=== PATIENT | female | born 1955 | race Caucasian/White ===

== ENCOUNTER → 2017-10-30 | Outpatient (CLI) | payer OTHER | LOC: BMCIMAGING 10:59 | PROVIDERS: ATTEND Internal Medicine | DX: Z13.820 Encounter for screening for osteoporosis (principal); M81.0 Age-related osteoporosis without current pathological fracture; Z78.0 Asymptomatic menopausal state ==

== ENCOUNTER → 2017-11-01 | Outpatient (CLI) | payer OTHER | LOC: BMCIMAGING 12:31 | PROVIDERS: ATTEND Internal Medicine | DX: Z12.31 Encounter for screening mammogram for malignant neoplasm of breast (principal) ==

== ENCOUNTER → 2017-12-11 | Outpatient (CLI) | payer OTHER | LOC: BMCIMAGING 13:25 | PROVIDERS: ATTEND Orthopaedic Surgery | DX: M16.11 Unilateral primary osteoarthritis, right hip (principal) ==

== ENCOUNTER → 2017-12-13 | Outpatient (CLI) | payer OTHER | LOC: BMCIMAGING 13:18 | PROVIDERS: ATTEND Orthopaedic Surgery | PROC: 3E0U3KZ Introduction of Other Diagnostic Substance into Joints, Percutaneous Approach (ICD-10-PCS; principal; 2017-12-13) | DX: M16.11 Unilateral primary osteoarthritis, right hip (principal) ==

== ENCOUNTER 2018-02-07 07:26 | Inpatient (IN) | payer OTHER ==
--- NOTE | 2018-01-18 11:20 | GHP ---
DATE OF ADMISSION: 02/07/2018 She will be an a.m. admission for surgery on Wednesday, February 07, 2018. PROBLEM: Right hip severe degenerative arthritis. HISTORY OF PRESENT ILLNESS: The patient is a 62-year-old woman admitted for a right total knee arthr oplasty. She has had severe pain in her right hip since November 19, 2016. She has been taking gabape ntin 3 times a day and diclofenac to control her pain. She is using a walker full-time. She had a left total hip arthroplasty on the [facility] in April of 2016. She had a right total knee arthroplasty by Dr. Pratik Iverson in [facility] in May of 2017. MEDICAL HISTORY: She is treated for hypothyroidism. She is also treated for prediabetes and elevate d cholesterol. No history of heart disease or stents, DVT, hepatitis, MRSA staph infection, sleep ap jt or bleeding disorders. In 2005, she had osteomyelitis in her right great toe. This was methicillin sensitive Staph aureus. She received vancomycin for 6 months. CURRENT MEDICATIONS: Gabapentin 300 mg three times daily, levothyroxine 50 mcg per day, metformin 50 0 mg twice daily. Oracea 40 mg daily. Pravachol 40 mg per day. Acyclovir p.r.n. DRUG ALLERGIES: Tramadol causes her lips to itch. She has been tested and has a known nickel allerg y. She has a Hernandez and Nephew total knee. She also has a latex allergy. SOCIAL HISTORY: The patient is self-employed senior graphic designer. She does not smoke cigarettes and occa sionally drinks alcohol. She is . FAMILY HISTORY: Positive for arthritis, asthma and cancer. PHYSICAL EXAMINATION: GENERAL: She is a healthy-appearing woman. Height 5 feet 1 inch. Weight 178 pounds. BMI: 33.6. EYES: Conjunctivae and sclerae are clear. Pupils are round and reactive. ALBERTO TH: Good oral hygiene. No loose teeth. CHEST: Clear. HEART: Regular rhythm. No murmurs. EXTRE MITIES: Pertinent findings are limited to her right hip. She has full hip extension and 90 degrees of flexion. External rotation 45 degrees. Internal rotation 0 degrees. Abduction 45 degrees. IMAGING: Her films show degenerative arthritis of the right hip. She has a very narrow cartilage sp darshan and some minor cystic degeneration in the femoral head. Her left total hip looks excellent. She is 3 or 4 mm short on the right. IMPRESSION ON ADMISSION: 1. Right hip advanced degenerative arthritis. She is prepared for right total hip arthroplasty. 2. Eight months status post right total knee arthroplasty. She is still having trouble with some sw elling and tightness. 3. Four years status post left total hip arthroplasty with an excellent result. 4. Treatment for hypothyroidism. 5. Treatment for prediabetes. 6. Treatment for elevated cholesterol. PLAN: She will undergo a right total hip arthroplasty. The surgery has been described to her, inclu ding the risks, complications, expectations, and recovery time. I have discussed with her the risk o f dislocation, leg length inequality, sciatic nerve injury and infection. She is a few mm short on t he right and I will be intentionally lengthening her a small amount. All her questions have been ans wered. She understands that there is a small possibility of revision surgery some time in her lifeti me. /[id number]/MODL
[~2018-02-07 07:26] MED LIST: POVIDONE-IODINE 20 ML in SODIUM CL IRRIG SOLUTION 500 ML IRR ONE; ROPIVACAINE 0.2% 80 MG, EPINEPHrine 0.2 MG, KETOROLAC TROMETHAMINE 30 MG in SYRINGE 0 ML IU ONE; TRANEXAMIC ACID 1,000 MG in NS 100 ML IV ONE; TRANEXAMIC ACID 3,000 MG in NS (SYRINGE) 50 ML IRR ONE
[2018-02-07] MEDS ORDERED: ONDANSETRON 4 MG/2 ML VIAL IVP ONE (07:39)
[2018-02-07] MEDS ORDERED: ceFAZolin 2 GM/DEXTROSE 100 ML IV ONE (07:39)
[2018-02-07] MEDS ORDERED: ACETAMINOPHEN 325 MG TAB PO ONE (07:39)
[2018-02-07] MEDS ORDERED: GABAPENTIN 300 MG CAP PO ONE (07:39)
[2018-02-07] MEDS ORDERED: FAMOTIDINE 20 MG TAB PO ONE (07:39)
[2018-02-07] MEDS ORDERED: DEXAMETHASONE 4 MG/ML VIAL IVP ONE (07:39)
[2018-02-07] MEDS ORDERED: LR 1,000 ML IV ONE (07:40)
[2018-02-07] MEDS ORDERED: PROPOFOL/EMULSION 500 MG/50 ML BOTTLE IV ONE (07:51)
[2018-02-07] MEDS ORDERED: ONDANSETRON 4 MG/2 ML VIAL ONE (07:51)
[2018-02-07] MEDS ORDERED: fentaNYL 100 MCG/2 ML INJ ONE (07:51)
[2018-02-07] MEDS ORDERED: DEXAMETHASONE 4 MG/ML VIAL ONE (07:51)
[2018-02-07] MEDS ORDERED: BUPIVACAINE/DEXTROSE 7.5MG/ML 2 ML SPINAL AMP SP ONE (07:51)
[2018-02-07] MEDS ORDERED: LIDOCAINE 2% 5 ML SDV ONE (07:51)
[2018-02-07] MEDS ORDERED: PHENYLEPHRINE HCL 100 MCG/ML SYR ONE (07:51)
[2018-02-07] MEDS ORDERED: PHENYLEPHRINE 10 MG/ML SDV ONE (07:51)
[2018-02-07] MEDS ORDERED: TRANEXAMIC ACID 3,000 MG/50 ML BAG IRR ONE (07:55)
[2018-02-07] MEDS ORDERED: ceFAZolin 1 GM/5 ML SYR ONE (07:57)
--- NOTE | 2018-02-07 08:11 | PDANEPAE ---
ANE History of Present Illness R hip DJD, here for R GER ANE Past Medical History - Cardiovascular History Hx Hypertension: No Hx Arrhythmias: No Hx Chest Pain: No Hx Coronary Artery / Peripheral Vascular Disease: No Hx CHF / Valvular Disease: No Hx Palpitations: No - Pulmonary History Hx COPD: No Hx Asthma/Reactive Airway Disease: No Hx Recent Upper Respiratory Infection: No Hx Oxygen in Use at Home: No Hx Sleep Apnea: No Sleep Apnea Screening Result - Last Documented: Negative - Neurologic History Hx Cerebrovascular Accident: No Hx Seizures: No Hx Dementia: No - Endocrine History Hx Diabetes: Yes Endocrine History Comment: PRE DIABETES - METFORMIN - Renal History Hx Renal Disorders: No - Liver History Hx Hepatic Disorders: No - Neurological & Psychiatric Hx Hx Neurological and Psychiatric Disorders: No - Cancer History Hx Cancer: No - Congenital Disorder History Hx Congenital Disorders: No - GI History Hx Gastrointestinal Disorders: Yes Gastrointestinal History Comment: COLON POLYP REMOVED - Other Health History Other Health History: ANEMIA. ROSACEA - Chronic Pain History Chronic Pain: Yes (R HIP) - Surgical History Prior Surgeries: C SECTION. FOOT INF -I & D. RAYMUNDO KNEES SCOPED. L GER. R TKA. COLONOSCOPIES X5 ANE Review of Systems Review of Systems: - Exercise capacity METS (RN): 4 METS ANE Patient History - Allergies Allergies/Adverse Reactions: latex Allergy (Verified 01/25/18 10:45) MILD SMALL RASH Opioids - Morphine Analogues Allergy (Verified 01/25/18 10:45) tramadol Allergy (Verified 01/25/18 10:45) TONGUE & LIPS ITCHY - Home Medications Home Medications: Cetirizine [ZyrTEC 10 mg (*)] 10 mg PO DAILY 01/18/18 [Last Taken 02/07/18 07:00 ] Diclofenac Sodium [Voltaren 75 MG (*)] 75 mg PO DAILY 01/18/18 [Last Taken 2 Months Ago ~12/08/17] Doxycycline Monohydrate [Oracea] 40 mg PO DAILY 01/18/18 [Last Taken 02/06/18] Gabapentin [Neurontin 300 MG (*)] 300 mg PO TID 01/18/18 [Last Taken 02/07/18 07 :00] Levothyroxine [Synthroid 50 mcg (*)] 50 mcg PO DAILY06 01/18/18 [Last Taken 07:00] Pravastatin Sodium [Pravachol] 40 mg PO DAILY 01/18/18 [Last Taken 02/06/18] metFORMIN HCL [Glucophage 500 mg (*)] 500 mg PO BIDMEAL 01/18/18 [Last Taken ] valACYclovir [Valtrex (*)] 500 mg PO DAILY 01/18/18 [Last Taken 02/06/18] - NPO status NPO Since - Liquids (Date): 02/07/18 NPO Since - Liquids (Time): 07:00 NPO Since - Solids (Date): 02/06/18 NPO Since - Solids (Time): 21:30 - Smoking Hx Smoking Status: Former smoker - Family Anes Hx Family Hx Anesthesia Complications: NEG ANE Labs/Vital Signs - Vital Signs Blood Pressure: 133/80 Heart Rate: 85 Respiratory Rate: 18 O2 Sat (%): 95 Height: 154.94 cm Weight: 80.739 kg ANE Physical Exam - Airway Neck exam: FROM Mallampati Score: Class 2 Mouth exam: normal dental/mouth exam - Pulmonary Pulmonary: no respiratory distress - Cardiovascular Cardiovascular: regular rate and rhythym - ASA Status ASA Status: II ANE Anesthesia Plan Anesthesia Plan: GA with mask (Will try remifent due to severe itching with other narcotics), spinal Total IV Anesthesia: Yes
--- NOTE | 2018-02-07 08:53 | PDHPUP ---
History & Physical Update H&P update statement: This history and physical update is based on an assessment of the patient which was completed after admission or registration (within 24 hours), but prior to the surgery/procedure. H&P update: H&P reviewed & patient examined
[2018-02-07] MEDS ORDERED: MIDAZOLAM 2 MG/2 ML VIAL ONE (09:12)
[2018-02-07] MEDS ORDERED: PROPOFOL 200 MG/20 ML VIAL ONE (10:30)
[2018-02-07] MEDS ORDERED: NALOXONE HCL 0.4 MG/ML INJ IVP PRN (10:33)
[2018-02-07] MEDS ORDERED: MEPERIDINE 25 MG/0.5 ML AMP IVP PRN (10:33)
[2018-02-07] MEDS ORDERED: HYDROmorphONE/DILAUDID 2 MG/ML INJ IVP PRN (10:33)
[2018-02-07] MEDS ORDERED: DIAZEPAM 5 MG/ML 1 ML SYR IVP PRN (10:33)
--- NOTE | 2018-02-07 10:49 | POSTOPPROG ---
Post Op Note Date of Operation: 02/07/18 Surgeon: Kyle Gregorio Foam Cutting Supervisor: Александр Anesthesiologist: Alethea Anesthesia: IV Sedation, Spinal Post-op Diagnosis: Right hip severe degenerative arthritis Procedure: Right total hip arthroplasty Inf/Abcess present in the surg proc area at time of surgery?: No EBL: 100-500
[2018-02-07] MEDS ORDERED: BISACODYL 10 MG SUPP PR PRN (11:03)
[2018-02-07] MEDS ORDERED: POLYETHYLENE GLYCOL 3350 17 GM PKT PO PRN (11:03)
[2018-02-07] MEDS ORDERED: ONDANSETRON 4 MG/2 ML VIAL IVP PRN (11:03)
[2018-02-07] MEDS ORDERED: LACTULOSE 20 GM/30 ML UDCUP PO PRN (11:03)
[2018-02-07] MEDS ORDERED: NS 500 ML IV PRN (11:03)
[2018-02-07] MEDS ORDERED: METOCLOPRAMIDE 10 MG/2 ML VIAL IVP PRN (11:03)
[2018-02-07] MEDS ORDERED: ONDANSETRON DISINTEGRATING 4 MG TAB PO PRN (11:03)
[2018-02-07] MEDS ORDERED: PROMETHAZINE HCL 25 MG SUPPR PR PRN (11:03)
[2018-02-07] MEDS ORDERED: MAGNESIUM HYDROXIDE 30 ML UDCUP PO PRN (11:03)
[2018-02-07] MEDS ORDERED: diphenhydrAMINE 25 MG CAP PO PRN (11:03)
[2018-02-07] MEDS ORDERED: TEMAZEPAM 15 MG CAP PO PRN (11:03)
[2018-02-07] MEDS ORDERED: DIPHENOXYLATE/ATROPINE LOMOTIL 1 TAB PO PRN (11:03)
[2018-02-07] MEDS ORDERED: PROMETHAZINE HCL 25 MG/ML INJ IVP PRN (11:03)
[2018-02-07] MEDS ORDERED: HYDROmorphONE/DILAUDID 1 MG/ML INJ IVP PRN (11:11)
--- NOTE | 2018-02-07 11:29 | GOP ---
DATE OF OPERATION: 02/07/2018 SURGEON: Kyle Gregorio MD [employer] TECHNICIAN: Dariel Lou and Torey Stout. ANESTHESIA: Combination of Marcaine spinal and IV sedation by Dr. Manda Claire. PREOPERATIVE DIAGNOSIS: Right hip severe degenerative arthritis. POSTOPERATIVE DIAGNOSIS: Right hip severe degenerative arthritis. PROCEDURE PERFORMED: On 02/07/2018, a right total hip arthroplasty, ceramic femoral head on highly c ross-link polyethylene cup liner. FINDINGS: ESTIMATED BLOOD LOSS: About 300 mL. DESCRIPTION OF PROCEDURE: The patient was given 2 g of IV Ancef preoperatively within 60 minutes of surgery. She also received 1000 mg of IV tranexamic acid. She was placed on the operating room tabl e and given spinal anesthesia with Marcaine by Dr. Claire. She was then placed supine and given IV se dation. A El catheter was not used. She wore a CHELSEA stocking and SCD on the nonoperative leg. Sh e was rolled to the left lateral decubitus position. The position was secured with the pegboard tabl e attachment. An axillary roll was used and all pressure points were carefully padded. I was carefu l to lock her pelvis in a rigid vertical position. Her perineum was isolated with plastic adhesive d rapes. Her right lower extremity was prepped with ChloraPrep. They were draped free using sterile s heets, stockinette, and Ioban plastic adhesive drapes. The World Health Organization time-out was performed to verify the correct surgical site and side and the correct patient identity. The [place] time-out was also performed. I made a 5-6-inch straight oblique posterolateral hip skin incision. The subcutaneous tissues were s harply divided, and hemostasis was obtained using electrocautery. Her fascia jill was identified and split along the axis of its fibers. I then curved posteriorly and proximally, and split the fascia of the gluteus jozef and bluntly split the muscle fibers in line with their orientation. A Charnle y self-retaining retractor was inserted. Her sciatic nerve was located, partially exposed, and protected throughout the procedure. The passementerie worker al rotators and the posterior hip capsule were divided as separate layers at the base of the femoral neck, tagged, and reflected posteriorly. A smooth 8-inch Steinmann pin was inserted vertically into the ilium, superior to the acetabulum. A 1/8-inch drill bit was inserted vertically into the greater trochanter and parallel to the first pin. The distance between the 2 was measured for leg length reference. Her femoral head was dislocated posteriorly. Severe degenerative changes were present on the femoral head. Her femoral neck was ost eotomized at the appropriate level and inclination. I was careful to preserve all the posterior capsule and most of the anterior capsule. The remnant of her damaged labrum was excised. The femur was prepared first. This allowed me to cellar pumper the amount of natural femoral neck anteversio n. This, in turn, allowed me to later determine the correct amount of cup anteversion. She had appr oximately 12-15 degrees of natural femoral neck anteversion. The canal was opened laterally with a box chisel. I hand broached sequentially up to size 5. I used a [place] Accolade II size 5 broach as a trial stem. I was careful to lateralize adequately. Appropriate retractors were inserted to expose the acetabulum. The acetabulum was reamed sequentiall y up to 52 mm. I selected the 52 mm Mimi Tritanium Trident II cluster hole hemispherical shell. This was tapped securely into place in the proper degree of inclination anteversion. I used the pavon sverse acetabular ligament and other acetabular bony landmarks to help me properly orient the cup. S he had a small anterior acetabular osteophyte, which I removed with an osteotome and rongeur. I performed a series of trial reductions to determine length and stability. I obtained an intraopera tive cross-table AP pelvis x-ray. There was good fit of the acetabular component and femoral compone nt. She was slightly long with the 0 neck length. I concluded that the size 5 high offset stem with a -2.5 neck and a 36 mm head with a 0-degree liner gave me the proper combination of appropriate katty gth and good anterior and posterior stability. She was about 4 or 5 mm short preoperatively and I wa s intentionally lengthening her a couple of millimeters. The 0-degree lip Mimi X3 highly cross-linked polyethylene liner was inserted and tapped securely i nto place. The Mimi Accolade II stem and a size 5 with high offset was inserted press-fit and was very tight. I did 1 final trial reduction and confirmed that the -2.5 mm neck length with a 36 mm h ead was the proper combination. The Mimi Biolox Delta ceramic head with an outside diameter of 36 mm and a neck length of -2.5 mm was tapped securely onto the clean trunnion. Her acetabulum was irrigated and cleaned, and the hip w as reduced 1 final time. She had excellent anterior and posterior stability and appropriate length. Then 40 mL of the joint anesthetic cocktail were injected into the capsule, the deep musculature, and the subcutaneous tissues around the skin edges. The joint was thoroughly irrigated 1 final time wit h a dilute Betadine solution. Then 50 cc of tranexamic acid were irrigated into the wound and left i n place. Her sciatic nerve was reinspected and looked unharmed. The external rotators and the posterior hip capsule were repaired in separate layers with #2 FiberWir e sutures through drill holes in the greater trochanter. Her fascia jill was repaired first with 2 f [id number] #2 FiberWire sutures, followed by a running #2 barbed Ethicon Stratafix PDO suture. S ubcutaneous tissues were closed in layers with interrupted 2-0 Monocryl sutures, followed by a runnin g 0 barbed Ethicon Stratafix Monoderm suture. The skin was closed with a running 3-0 barbed Ethicon Stratafix Monoderm subcuticular suture. The skin edges were reapproximated and sealed with Dermabond glue. The wound was covered with a large piece of waterproof Mepilex stressing. The sacral Mepilex dressing was also applied. A long-leg CHELSEA stocking and SCD were applied to her right lower extremity. She wore a stocking and S CD on the opposite leg during the procedure. An abduction pillow was placed between her knees. She was awakened from anesthesia and rolled to the supine position on her gurney. She was taken to P ACU in satisfactory condition. There were no recognized intraoperative complications. COUNT: The sponge and needle count were correct on 2 occasions. IMPLANTS: I used a [place] Trident II hemispherical cluster hole acetabular shell with an outside di ameter of 52 mm. The liner was a Mimi X3 0-degree highly cross-linked liner with an inside diamet er of 36 mm. The femoral component was a press-fit Mimi high offset Accolade II stem in size 5. The femoral head was a Mimi Biolox Delta ceramic head with a -2.5 mm neck length and a 36 mm outsi de diameter. Dariel Lou and Torey Stout acted as surgical assistants. Their assistance was a medical necess ity for safe completion of the procedure. /[id number]/MODL
[2018-02-07] MEDS ORDERED: LR 1,000 ML IV SCH (11:30)
--- NOTE | 2018-02-07 11:59 | PDMN ---
Medical Necessity Medical necessity: [facility] S560 hip arthroplasty: R GER AUTH# [id number] APPROVED FOR CPT 20021 DONE INT LOS 1 DAY
[2018-02-07] MEDS: ACETAMINOPHEN 325 MG TAB PO SCH ×3 (12:32→23:07)
[2018-02-07] MEDS: KETOROLAC 15 MG/1 ML SDV IVP SCH ×3 (12:33→23:07)
[2018-02-07] MEDS: HYDROmorphONE/DILAUDID 2 MG TAB PO PRN ×2 (13:12→20:40)
--- NOTE | 2018-02-07 14:38 | POSTANESTH ---
Post Anesthetic Evaluation Cardiovascular Status: Normal, Stable Respiratory Status: Normal, Stable Level of Consciousness/Mental Status: Can Participate in Eval Pain Control: Adequate, Prn Tx Ordered Nausea/Vomiting Control: Adequate, Prn Tx Ordered Complications Possibly Related to Anesthesia: None Noted (moving bilat Le, no issues)
[2018-02-07] MEDS: CYCLOBENZAPRINE 10 MG TAB PO PRN (15:06)
[2018-02-07] MEDS: GABAPENTIN 300 MG CAP PO SCH ×2 (15:06→23:07)
[2018-02-07] MEDS: ceFAZolin 2 GM/DEXTROSE 100 ML IV SCH (17:53)
[2018-02-07] MEDS: metFORMIN HCL 500 MG TAB PO SCH (17:54)
[2018-02-07] MEDS: ASPIRIN 325 MG TAB PO SCH (20:40)
[2018-02-07] MEDS: SENNOSIDES/DOCUSATE SODIUM TAB PO SCH (20:40)
[2018-02-07] MEDS: FAMOTIDINE 20 MG TAB PO SCH (20:40)
[2018-02-08] MEDS: ceFAZolin 2 GM/DEXTROSE 100 ML IV SCH (02:02)
[2018-02-08] MEDS: HYDROmorphONE/DILAUDID 2 MG TAB PO PRN ×2 (02:48→08:27)
[2018-02-08] MEDS ORDERED: LEVOTHYROXINE 50 MCG TAB PO SCH (06:00)
[2018-02-08] MEDS: ACETAMINOPHEN 325 MG TAB PO SCH ×2 (06:07→12:13)
[2018-02-08] MEDS: KETOROLAC 15 MG/1 ML SDV IVP SCH (06:08)
--- NOTE | 2018-02-08 07:32 | SOAPPROG ---
SOAP Progress Note Assessment/Plan: Assessment: Awake and alert. Mild pain. She has been up and walking in the [place] with physical therapy. No nausea. Voiding spontaneously. Her dressing is dry. Sciatic nerve intact. Postop films look excellent. Plan: Continue physical therapy and occupational therapy today. Discharge later today. 02/08/18 07:31 Objective: Vital Signs Temp Pulse Resp BP Pulse Ox 36.7 C 95 16 131/79 H 94 02/08/18 02:50 02/08/18 02:50 02/08/18 02:50 02/08/18 02:50 02/08/18 02:50 Laboratory Results 02/08/18 04:15 02/07/18 02/08/18 02/09/18 05:59 05:59 05:59 Intake Total 3090 Output Total 2500 Balance 590 ICD10 Worksheet Patient Problems: Problems Problem Status Onset Osteoarthritis of right hip Acute
[2018-02-08 07:33] VITALS: BP 123/70
--- NOTE | 2018-02-08 07:49 | GDS ---
ADMISSION DIAGNOSIS: Right hip degenerative arthritis. DISCHARGE DIAGNOSIS: Right hip degenerative arthritis. OPERATION PERFORMED: 02/07/2018, a right total hip arthroplasty, ceramic femoral head on highly cros s-linked polyethylene cup liner. POSTOPERATIVE COMPLICATIONS: None. CONDITION ON DISCHARGE: Improved. DESCRIPTION OF HOSPITAL COURSE: The patient was admitted to the hospital on the morning of surgery. Her admission CBC, electrolytes, BUN, and creatinine were normal. The same day, under a combination of Marcaine, spinal, and IV sedation, she underwent a right total hip arthroplasty. Postoperatively , she was treated with multimodal DVT prophylaxis, including aspirin. She was seen by Physical Thera py and made good progress with ambulation and stairs. By the time of discharge, she was afebrile, he r wound was clean and dry, and she was independent, walking with a walker, partial weightbearing on t he right. DISPOSITION: The patient is discharged to her home. She will go to outpatient physical therapy at [facility] in [place] next week. She may progress to full weightbearing on the right as tolerated. Use HCELSEA stockings for 1 week. Use an abduction pillow on bed for 3 weeks. She has prescriptions for Celebrex and Dilaudid for pain control. I will see her back in the office on December 24, 2018. If there are any problems, she is to call me at the office. /[id number]/MODL
[2018-02-08] MEDS ORDERED: FERROUS SULFATE 325 MG TAB PO SCH (08:00)
[2018-02-08] MEDS: SENNOSIDES/DOCUSATE SODIUM TAB PO SCH (08:26)
[2018-02-08] MEDS: FAMOTIDINE 20 MG TAB PO SCH (08:26)
[2018-02-08] MEDS: GABAPENTIN 300 MG CAP PO SCH (08:27)
[2018-02-08] MEDS: CYCLOBENZAPRINE 10 MG TAB PO PRN (08:27)
[2018-02-08] MEDS: ASPIRIN 325 MG TAB PO SCH (08:27)
[2018-02-08] MEDS: metFORMIN HCL 500 MG TAB PO SCH (08:29)
[2018-02-08] MEDS ORDERED: CETIRIZINE 10 MG TAB PO SCH (09:00)
[2018-02-08] MEDS ORDERED: valACYclovir 500 MG TAB PO SCH (09:00)
[2018-02-08] MEDS ORDERED: Doxycycline Monohydrate [Oracea] 40 MG PO SCH (09:00)
[2018-02-08] MEDS ORDERED: PRAVASTATIN SODIUM 40 MG TAB PO SCH (09:00)
--- NOTE | 2018-02-08 10:18 | ASMTLACE ---
MA[place] Length of stay for Answers: 2 days current admission Acuity / Level of Answers: Yes Care: Did the patient have an inpatient admission? # of Emergency department Answers: 1-2 visits in the last 6 months Score: 6 Date Signed: 02/08/2018 10:18 AM Electronically Signed By:JAMISON Chowdary
--- NOTE | 2018-02-08 10:20 | ASMTCMCOM ---
CM Note CM Note Notes: Pt had planned GER. Pt medically stable for d/c. PT rec home/outpatient, rec outpatient. Pt resides with spouse. No CM d/c needs identified. Date Signed: 02/08/2018 10:19 AM Electronically Signed By:JAMISON Chowdary
== END 2018-02-08 14:15 | disposition home or self-care (01) | DRG 470 ==
LOC: F3N 07:26
PROVIDERS: ADMIT Internal Medicine; ATTEND Orthopaedic Surgery
PROC: 0SR904Z Replacement of Right Hip Joint with Ceramic on Polyethylene Synthetic Substitute, Open Approach (ICD-10-PCS; principal; 2018-02-07 09:00)
DX: M16.11 Unilateral primary osteoarthritis, right hip (principal); R73.03 Prediabetes; E03.9 Hypothyroidism, unspecified; E78.00 Pure hypercholesterolemia, unspecified; Z79.84 Long term (current) use of oral hypoglycemic drugs; Z96.642 Presence of left artificial hip joint; Z96.651 Presence of right artificial knee joint
CPT/HCPCS: 97116-GP; 97161-GP; 97165-GO; 97535-GO; J0171; J0690; J1100; J1170; J1885; J2250; J2370; J2405; J2704; J2795; J3010